=== PATIENT | female | born 1930 ===

== ENCOUNTER 2018-04-23 09:44 | Day surgery (SDC) | payer OTHER ==
--- NOTE | 2018-04-23 05:21 | GHP ---
CHIEF COMPLAINT: Left knee wound. HISTORY OF PRESENT ILLNESS: Ms. Oneill is an 87-year-old female, who recently underwent a left total knee replacement. She has had wound healing problems in the anterior portion of her knee and since she is not having skin connecting the area has decided to formally irrigate and debride the area. ALLERGIES: Include penicillin. CURRENT MEDICATIONS: Include clindamycin. PRIOR MEDICAL HISTORY: Includes high blood pressure and arthritis. PRIOR SURGICAL HISTORY: Included a total knee replacement as well as back surgery 1949. SOCIAL HISTORY: She is a former smoker. She takes no alcohol. PHYSICAL EXAMINATION: EYES: Pupils equal, round, and reactive to light. CHEST: Clear to auscultat ion rate and rhythm. ABDOMEN: Soft and nontender. EXTREMITIES: Her left knee reveals t he epidermal layer not connected with rough eschar noted in the area, with erythema noted. She is ne urologically intact distally. ASSESSMENT AND PLAN: Patient is status post left knee wound dehiscence. She is to go to the operati ng room to undergo a formal I and D. /[id number]/MODL
--- NOTE | 2018-04-23 07:19 | PDHPUP ---
History & Physical Update H&P update statement: This history and physical update is based on an assessment of the patient which was completed after admission or registration (within 24 hours), but prior to the surgery/procedure. H&P update: H&P reviewed & patient examined, no change in patient's condition since H&P completed
[2018-04-23] MEDS ORDERED: ACETAMINOPHEN 500 MG TAB PO ONE (10:01)
[2018-04-23] MEDS ORDERED: CLINDAMYCIN 900 MG/DEXTROSE 50 ML IV ONE (10:01)
[2018-04-23] MEDS ORDERED: LR 1,000 ML IV ONE (10:03)
[2018-04-23] MEDS ORDERED: BACITRACIN 50,000 UNITS/10 ML SYR IRR ONE ×2 (10:16→11:31)
[2018-04-23] MEDS ORDERED: BUPIVACAINE/EPI 0.5% 30 ML SDV ONE ×2 (10:16→11:31)
[2018-04-23] MEDS ORDERED: ceFAZolin 2 GM/DEXTROSE 100 ML IV ONE (10:30)
[2018-04-23 10:42] LABS: PLATELET COUNT 214 10^3/uL (150-400)
[2018-04-23] MEDS ORDERED: POLYMYXIN B SULFATE 500,000 UNIT/10 ML SYR IRR ONE (11:31)
[2018-04-23] MEDS ORDERED: PROPOFOL/EMULSION 500 MG/50 ML BOTTLE IV ONE (11:39)
[2018-04-23] MEDS ORDERED: fentaNYL 100 MCG/2 ML INJ ONE ×3 (11:39→13:34)
[2018-04-23] MEDS ORDERED: LIDOCAINE 2% 2 ML INJ ONE (11:41)
[2018-04-23] MEDS ORDERED: GLYCOPYRROLATE 0.2 MG/1 ML VIAL ONE (11:41)
[2018-04-23] MEDS ORDERED: NALOXONE HCL 0.4 MG/ML INJ IVP PRN (11:42)
[2018-04-23] MEDS ORDERED: DEXAMETHASONE 4 MG/ML VIAL IVP PRN (11:42)
[2018-04-23] MEDS ORDERED: ONDANSETRON 4 MG/2 ML VIAL IVP PRN ×2 (11:42→12:52)
[2018-04-23] MEDS ORDERED: LR 500 ML IV PRN (11:42)
[2018-04-23] MEDS ORDERED: ALBUTEROL 3 ML DEYVIAL IH PRN (11:42)
--- NOTE | 2018-04-23 11:42 | PDANEPAE ---
ANE Past Medical History - Cardiovascular History Hx Hypertension: Yes Hx Arrhythmias: No Hx Chest Pain: No Hx Coronary Artery / Peripheral Vascular Disease: No Hx CHF / Valvular Disease: No Hx Palpitations: No - Pulmonary History Hx COPD: No Hx Asthma/Reactive Airway Disease: No Hx Recent Upper Respiratory Infection: No Hx Oxygen in Use at Home: No Hx Sleep Apnea: No Sleep Apnea Screening Result - Last Documented: Negative - Neurologic History Hx Cerebrovascular Accident: No Hx Seizures: No Hx Dementia: No - Endocrine History Hx Diabetes: No - Renal History Hx Renal Disorders: Yes Renal History Comment: INTERMITTENT INCONT USES SMALL PAD - Liver History Hx Hepatic Disorders: No - Neurological & Psychiatric Hx Hx Neurological and Psychiatric Disorders: No - Cancer History Hx Cancer: No - Congenital Disorder History Hx Congenital Disorders: No - GI History Hx Gastrointestinal Disorders: No - Other Health History Other Health History: OSTEOARTHRITIS. DENTAL IMPLANTS. BRUISES EASILY - Chronic Pain History Chronic Pain: No - Surgical History Prior Surgeries: left TKA 03/23/18. GENNA CATARACT. LAMINECTOMY X2. RT EYE MUSCLE. TONSILLECTOMY ANE Review of Systems Review of Systems: - Exercise capacity METS (RN): 4 METS ANE Patient History - Allergies Allergies/Adverse Reactions: Penicillins Allergy (Verified 02/26/18 10:49) Hives - Home Medications Home Medications: Fluticasone Nasal [Flonase Nasal [place]] PRN 03/19/18 [Last Taken 12/27/17] Herbals/Supplements -Info Only 03/19/18 [Last Taken 04/22/18] Triamterene/Hydrochlorothiazid [Triamterene-Hctz 37.5-25 mg Tb] 03/19/18 [Last Taken 04/22/18] Acetaminophen [Tylenol 325mg (*)] 04/22/18 [Last Taken 04/21/18] Clindamycin 04/22/18 [Last Taken 04/23/18] Sennosides/Docusate Sodium [Senokot-S] 04/22/18 [Last Taken 03/29/18] oxyCODONE IR [Oxycodone Ir (*)] PRN 04/22/18 [Last Taken 04/21/18] - NPO status NPO Since - Liquids (Date): 04/23/18 NPO Since - Liquids (Time): 07:30 NPO Since - Solids (Date): 04/22/18 NPO Since - Solids (Time): 06:00 - Smoking Hx Smoking Status: Former smoker - Family Anes Hx Family Hx Anesthesia Complications: none ANE Labs/Vital Signs - Labs Result Diagrams: 04/23/18 10:30 04/23/18 10:30 - Vital Signs Blood Pressure: 123/74 Heart Rate: 61 Respiratory Rate: 14 O2 Sat (%): 92 Height: 167.64 cm Weight: 95.254 kg ANE Physical Exam - Airway Neck exam: FROM Mallampati Score: Class 1 Mouth exam: normal dental/mouth exam - Pulmonary Pulmonary: no respiratory distress, no rales or rhonchi, clear to auscultation - Cardiovascular Cardiovascular: regular rate and rhythym, no murmur, rub, or gallop - ASA Status ASA Status: III ANE Anesthesia Plan Anesthesia Plan: GA w LMA
[2018-04-23] MEDS ORDERED: ONDANSETRON 4 MG/2 ML VIAL ONE (12:00)
[2018-04-23] MEDS ORDERED: diphenhydrAMINE 25 MG CAP PO PRN (12:52)
[2018-04-23] MEDS ORDERED: MAGNESIUM HYDROXIDE 30 ML UDCUP PO PRN (12:52)
[2018-04-23] MEDS ORDERED: TEMAZEPAM 15 MG CAP PO PRN (12:52)
[2018-04-23] MEDS ORDERED: DIPHENOXYLATE/ATROPINE LOMOTIL 1 TAB PO PRN (12:52)
[2018-04-23] MEDS ORDERED: PROMETHAZINE HCL 25 MG/ML INJ IVP PRN (12:52)
[2018-04-23] MEDS ORDERED: BISACODYL 10 MG SUPP PR PRN (12:52)
[2018-04-23] MEDS ORDERED: traMADol 50 MG TAB PO PRN (12:52)
[2018-04-23] MEDS ORDERED: ONDANSETRON DISINTEGRATING 4 MG TAB PO PRN (12:52)
[2018-04-23] MEDS ORDERED: METOCLOPRAMIDE 10 MG/2 ML VIAL IVP PRN (12:52)
[2018-04-23] MEDS ORDERED: LACTULOSE 20 GM/30 ML UDCUP PO PRN (12:52)
[2018-04-23] MEDS ORDERED: PROMETHAZINE HCL 25 MG SUPPR PR PRN (12:52)
[2018-04-23] MEDS ORDERED: oxyCODONE IR 5 MG TAB PO PRN (12:52)
[2018-04-23] MEDS ORDERED: CYCLOBENZAPRINE 10 MG TAB PO PRN (12:52)
[2018-04-23] MEDS ORDERED: POLYETHYLENE GLYCOL 3350 17 GM PKT PO PRN (12:52)
--- NOTE | 2018-04-23 12:52 | POSTOPPROG ---
Post Op Note Date of Operation: 04/23/18 Surgeon: Ita Davison Anesthesia: LMA Pre-op Diagnosis: l knee wound dehiscence Procedure: l knee I&D Inf/Abcess present in the surg proc area at time of surgery?: Yes Depth: Deep Incisional (Fascial) EBL: 100-500
[2018-04-23] MEDS ORDERED: LR 1,000 ML IV SCH (13:00)
[2018-04-23] MEDS: fentaNYL 100 MCG/2 ML INJ IVP PRN ×3 (13:08→13:36)
--- NOTE | 2018-04-23 13:31 | POSTANESTH ---
Post Anesthetic Evaluation Cardiovascular Status: Normal, Stable, Similar to Pre-Op Cond Respiratory Status: Normal, Stable, Similar to Pre-op Cond. Level of Consciousness/Mental Status: Can Participate in Eval Pain Control: Adequate, Prn Tx Ordered Nausea/Vomiting Control: Adequate, Prn Tx Ordered Complications Possibly Related to Anesthesia: None Noted
[2018-04-23] MEDS ORDERED: oxyCODONE IR 5 MG TAB ONE (13:40)
--- NOTE | 2018-04-23 14:18 | GOP ---
DATE OF OPERATION: 04/23/2018 SURGEON: Ita Davison MD ANESTHESIA: LMA. PREOPERATIVE DIAGNOSIS: Left knee wound dehiscence. POSTOPERATIVE DIAGNOSIS: Left knee wound dehiscence. PROCEDURE PERFORMED: Left knee I and D, irrigation and debridement, with primary closure, complicate d by the adipose tissue surrounding her knee. FINDINGS: INDICATIONS: An 87-year-old female who had previously undergone a left total knee arthroplasty. Had been doing well in rehab when she began to have opening of the wound at the inferior portion of her knee with an eschar that had formed over the area and continued to drain serous fluid. Decided to ta ke her to the operating room and do a formal irrigation and debridement. DESCRIPTION OF PROCEDURE: Patient was brought to the operating room, after the left side had been id entified as the correct side by the patient, nurse and physician. Once in the operating room, she wa s placed under general anesthesia using LMA. Once asleep, a tourniquet was placed around the upper p ortion of the left thigh, and the left lower extremity was then sterilely prepped and draped in the u sual fashion using GSI solution. Once prepped and draped, limb was elevated for 2 minutes in order t o exsanguinate it. Tourniquet was inflated to 250 mmHg. Sharp incision was used around the area of the eschar in order to remove the scarred edges of the skin, as well as remove the eschar itself. Th e fatty tissue below was also cut sharply until achieving some bleeding tissue. Blunt dissection was carried down deeper, onto the extensor mechanism which was noted to be intact and healing well. The re was some serous fluid that had collected between the adipose layer and the extensor mechanism. A scrub brush was used to debride any of the loose tissue that may be on the extensor mechanism or in t he subcutaneous tissue. Three liters of antibiotic solution was irrigated through the wound using bu lb syringe. Once irrigated fully, the wound was then closed using 0 Vicryl suture for the deep subcu taneous layers, which was difficult to hold a stitch secondary to the 3 cm of fat that she had in the subcutaneous tissue making the closure more complicated, 2-0 Vicryl suture for the subcutaneous laye rs and then a 2-0 Prolene suture in a vertical mattress type stitch to hold the skin together. Once completed, tourniquet was released at 15 minutes. The wound was then dressed with Xeroform, 4 x 4, wr apped in Kerlix. Leg was completely undraped in the operating room, tourniquet removed from the thig h, and an Ramos wrap placed around the knee. The patient was then woken up, extubated, transferred ont o a stretcher, and sent to the recovery room in good condition. TOURNIQUET TIME: 15 minutes. /[id number]/MODL
[2018-04-23 16:18] VITALS: BP 108/51
[2018-04-23] MEDS ORDERED: ACETAMINOPHEN 325 MG TAB PO SCH (18:00)
[2018-04-23] MEDS ORDERED: SENNOSIDES/DOCUSATE SODIUM TAB PO SCH (21:00)
[2018-04-23] MEDS ORDERED: FAMOTIDINE 20 MG TAB PO SCH (21:00)
== END 2018-04-23 16:14 | disposition home health service (06) ==
LOC: FSGY 09:44
PROVIDERS: ATTEND Orthopaedic Surgery
DX: T84.54XA Infection and inflammatory reaction due to internal left knee prosthesis, initial encounter (principal); I10 Essential (primary) hypertension; Z96.652 Presence of left artificial knee joint; Z87.891 Personal history of nicotine dependence; Z79.2 Long term (current) use of antibiotics; Z88.0 Allergy status to penicillin
CPT/HCPCS: J0690; J2405; J2704; J3010